=== PATIENT | male | born 1940 | race Caucasian/White ===

== ENCOUNTER → 2016-10-23 | Outpatient (CLI) | payer MEDICARE ==
[~2016-10-23] MED LIST: OMNIPAQUE 350 MG/ML, 150 ML BOTTLE ONE
== END | disposition home or self-care (01) ==
LOC: RAD 17:06
PROVIDERS: ATTEND Urology
DX: N20.0 Calculus of kidney (principal); N40.0 Benign prostatic hyperplasia without lower urinary tract symptoms; K40.90 Unilateral inguinal hernia, without obstruction or gangrene, not specified as recurrent
CPT/HCPCS: 36415; 74178; 82565; Q9967

== ENCOUNTER → 2017-07-17 | Outpatient (CLI) | payer MEDICARE ==
[~2017-07-17] MED LIST changes: -OMNIPAQUE 350 MG/ML, 150 ML BOTTLE ONE; +REGADENOSON 0.4 MG/5 ML SYRINGE ONE
== END | disposition home or self-care (01) ==
LOC: CFH 11:52
PROVIDERS: ATTEND Internal Medicine Cardiovascular Disease
DX: R07.89 Other chest pain (principal)
CPT/HCPCS: 78452; 93017; A9502; J2785

== ENCOUNTER 2018-02-14 10:13 | Day surgery (SDC) | payer MEDICARE ==
[2018-02-06 13:07] VITALS: BP 147/85
[~2018-02-14] VITALS: Ht 175.3 cm; Wt 81.4 kg
[~2018-02-14 10:13] MED LIST changes: +ALPR0.25 PO; +ATOR10TA PO; +BUPIVACAINE/PF 0.5% ONE; +EPINEPHRINE 1 MG/ML, 1ML ONE; +FINA5TAB4 PO; +OXYC-307 PO; -REGADENOSON 0.4 MG/5 ML SYRINGE ONE; +SILO4CAP PO; +ZOLP10TA PO
[2018-02-14] MEDS ORDERED: LACTATED RINGERS 1,000 ML IV SCH (10:40)
[2018-02-14 10:45] VITALS: BP 147/85
[2018-02-14] MEDS ORDERED: ONDANSETRON 2MG/ML, 2ML IVPush ONE (11:00)
[2018-02-14] MEDS ORDERED: OXYcodone IR 5MG TABLET PO ONE (11:00)
[2018-02-14] MEDS ORDERED: ACETAMINOPHEN 500 MG TABLET PO ONE (11:00)
[2018-02-14] MEDS ORDERED: FENTANYL PF 250 MCG/5ML ONE (11:37)
[2018-02-14] MEDS ORDERED: MIDAZOLAM 1 MG/ML, 2ML ONE (11:37)
[2018-02-14] MEDS ORDERED: VANCOMYCIN 1,000 MG ONE (11:42)
[2018-02-14] MEDS ORDERED: CEFAZOLIN 1,000 MG ONE (11:55)
[2018-02-14] MEDS ORDERED: PROPOFOL 10 MG/ML, 20ML ONE (11:55)
[2018-02-14] MEDS ORDERED: ONDANSETRON 2MG/ML, 2ML IV PRN (12:30)
[2018-02-14] MEDS ORDERED: KETOROLAC 30 MG/1 ML IV PRN (12:30)
[2018-02-14] MEDS ORDERED: HYDROmorphone 1 MG/ML, 1ML IV PRN (12:30)
[2018-02-14] MEDS ORDERED: OXYcodone 5 MG/5 ML ORAL.SOL UDC PO PRN (12:30)
[2018-02-14] MEDS ORDERED: MEPERIDINE/PF 25MG/0.5ML IVPush PRN (12:30)
[2018-02-14] MEDS ORDERED: ROCURONIUM 10MG/ML,5ML ONE (12:48)
[2018-02-14] MEDS ORDERED: DEXAMETHASONE 4 MG/ML, 1ML ONE ×3 (12:48)
[2018-02-14] MEDS ORDERED: ONDANSETRON 2MG/ML, 2ML ONE (12:48)
[2018-02-14] MEDS ORDERED: OXYcodone 5 MG/5 ML ORAL.SOL UDC ONE (13:28)
[2018-02-14] MEDS ORDERED: FENTANYL PF 100 MCG/2ML ONE (13:28)
[2018-02-14] MEDS: FENTANYL PF 100 MCG/2ML IV PRN ×2 (13:34→13:44)
[2018-02-14] MEDS ORDERED: MEPERIDINE/PF 50 MG/ML ONE (13:53)
== END 2018-02-14 15:25 | disposition home or self-care (01) ==
LOC: OUT 10:13
PROVIDERS: ATTEND Surgery
DX: K40.90 Unilateral inguinal hernia, without obstruction or gangrene, not specified as recurrent (principal); F41.9 Anxiety disorder, unspecified; G89.29 Other chronic pain; E78.5 Hyperlipidemia, unspecified; Z98.52 Vasectomy status; Z98.890 Other specified postprocedural states; Z79.899 Other long term (current) drug therapy; Z87.891 Personal history of nicotine dependence; Z86.14 Personal history of Methicillin resistant Staphylococcus aureus infection
CPT/HCPCS: 49505; C1781; J0171; J0690; J1100; J2175; J2250; J2405; J2704; J3010; J3370; J3490

== ENCOUNTER → 2020-09-23 | Outpatient (CLI) | payer MEDICARE ==
[~2020-09-23] MED LIST changes: -BUPIVACAINE/PF 0.5% ONE; +CETI-158 PO; -EPINEPHRINE 1 MG/ML, 1ML ONE; +LISI-170 PO; -OXYC-307 PO; +OXYC-380 PO
[2020-09-23 15:52] LABS: MICROSCOPIC NOT IND
[2020-09-23 15:53] LABS: BASOPHILS % (AUTO) 1 % (0-1); EOSINOPHILS % (AUTO) 0 % (1-7); LYMPHOCYTES % (AUTO) 30 % (22-44); MEAN CORPUSCULAR HEMOGLOBIN 32.1 pg (27.5-34.5); MEAN CORPUSCULAR HGB CONC 34.3 g/dL (33.2-36.2); MONOCYTES % (AUTO) 7 % (2-9); NEUTROPHILS % (AUTO) 62 % (42-75); PLATELET COUNT 153 x10^3/uL (130-400); RED CELL DISTRIBUTION WIDTH 12.7 % (9.4-14.8)
[2020-09-23 15:55] LABS: MD NO
[2020-09-23 16:02] LABS: INTERNATIONAL NORMALIZED RATIO 1.04 (0.93-1.1); PROTHROMBIN TIME 11.1 Seconds (9.6-11.5)
[2020-09-23 16:04] LABS: ALANINE AMINOTRANSFERASE 46 U/L (12-78); ALBUMIN 4.2 g/dL (3.4-5.0); ANION GAP 4 mmol/L (5-15); CALCIUM 9.1 mg/dL (8.5-10.1); CHLORIDE 102 mmol/L (98-107)
[2020-09-23 16:06] LABS: ALKALINE PHOSPHATASE 69 U/L (45-117); BILIRUBIN,TOTAL 0.5 mg/dL (0.2-1.0); TOTAL PROTEIN 8.3 g/dL (6.4-8.2)
== END | disposition home or self-care (01) ==
LOC: STAR 14:44
PROVIDERS: ATTEND Neurological Surgery
DX: Z01.818 Encounter for other preprocedural examination (principal); M48.061 Spinal stenosis, lumbar region without neurogenic claudication; M43.16 Spondylolisthesis, lumbar region; Z20.822 Contact with and (suspected) exposure to COVID-19
CPT/HCPCS: 36415; 71046; 80053; 81003; 85025; 85610; 85730; 93005; U0003

== ENCOUNTER → 2020-12-23 | Outpatient (CLI) | payer MEDICARE ==
[~2020-12-23] MED LIST changes: +TIZA4TAB2 PO
== END | disposition home or self-care (01) ==
LOC: CFH 11:39
PROVIDERS: ATTEND Neurological Surgery
DX: M48.061 Spinal stenosis, lumbar region without neurogenic claudication (principal); M51.36 Other intervertebral disc degeneration, lumbar region
CPT/HCPCS: 72131